=== PATIENT | male | born 1995 | race Caucasian/White ===

== ENCOUNTER 2025-01-16 19:35 | Emergency (ER) | payer OTHER, BC ==
[2025-01-16] MEDS: Tetracaine HCl/PF 0.5% 4 ML Bottle EYELF ONE (20:09)
[2025-01-16] MEDS: Fluorescein 1 MG Ophth Strip EYELF ONE (20:09)
[2025-01-16] MEDS: Erythromycin Base 0.5% Ophth Oint 3.5 GM Tube EYELF ONE (20:09)
== END 2025-01-16 20:29 | disposition home or self-care (01) ==
LOC: VM.ED 19:35
DX: T15.82XA Foreign body in other and multiple parts of external eye, left eye, initial encounter (principal); W44.9XXA Unspecified foreign body entering into or through a natural orifice, initial encounter
CPT/HCPCS: 65220; 99283-25; A9270-GY; J3490